=== PATIENT | female | born 1950 | race Caucasian/White ===

== ENCOUNTER 2018-04-27 15:14 | Emergency (ER) | payer MEDICARE, BC | END 2018-04-27 18:45 | disposition home or self-care (01) | LOC: FTE 15:14 | DX: S52.501A Unspecified fracture of the lower end of right radius, initial encounter for closed fracture (principal); S52.612A Displaced fracture of left ulna styloid process, initial encounter for closed fracture; W18.30XA Fall on same level, unspecified, initial encounter; Y92.9 Unspecified place or not applicable | CPT/HCPCS: 73110; 73110-RT; 99283-25 ==